=== PATIENT | female | born 1965 | race Caucasian/White ===

== ENCOUNTER 2016-06-25 05:46 | Day surgery (SDC) | payer MEDICARE, OTHER ==
--- NOTE | ~2016-06-25 | OP ---
Record Of Operation [facility] [address] [place]. [address] NAME: LALITA TINOCO : 65 STATUS : REG [facility] PAT#: [id number] AGE: 51 ADM/REG DATE : 06/25/16 MR#: [id number] REPORT SERV DATE: 06/25/16 DICTATED BY: LATISHA FERRARI IV DATE: 06/25/16 REPORT STATUS : Draft TRANSCRIBED BY: MODJovita DATE: 06/25/16 DATE OF PROCEDURE: 06/25/2016 PREOPERATIVE DIAGNOSIS: Reticulonodular infiltrate in the left lower lobe with history of lung cancer and enlarged level 7 and 11L lymph nodes. POSTPROCEDURE DIAGNOSIS: BAL with results pending of the left lower lobe with sampling of the level 7 and 11L lymph nodes demonstrating lymphoid tissue without clear malignancy. PROCEDURE: Bronchoscopy with bronchioalveolar lavage of the left lower lobe with endobronchial ultrasound and sampling of the level 7 and 11L lymph nodes. INDICATIONS: Symptoms of infection with COPD exacerbation. Unable to provide a specimen with infiltrate in the left lower lobe and enlarged level 7 and 11L lymph nodes. CONTRAINDICATIONS: None. CONSENT: The risks, benefits, and alternative evaluations were discussed with the patient. Possible complications reviewed to include air leak around the lung, bleeding, infection, low oxygen level, and even potentially . The patient agreed to procedure with the consent signed, and witnessed on the front of the chart. LABS: Platelet count was 330,000. INR was 1.1, PTT is 35.3. METHOD: The patient was taken to the bronchoscopy suite at [facility] [place] and prepared in the usual manner. Anesthesiology was consulted to provide airway management as well as sedation. This was initially provided via an LMA airway, however, because of difficulty with ventilation, the patient underwent intubation to better secure the airway. Both of these went without event. The LMA was used to initiate the procedure. A total of 18 mL of 2% lidocaine solution was used throughout the procedure to provide airway sedation. On inspection of the airway, there was slightly hyperemic mucosa with airways minimally ectatic. There was an anatomic variant of a two-segment right upper lobe with the apical segments off both the anterior and posterior segments. There were no endobronchial lesions with all airways patent out beyond the fourth generation bronchi. On the left, there was postradiation changes to the proximal airway with rotation of the airways counter clockwise. The lingula was [place]. The scope could not be advanced into the more distal left upper lobe bronchus. In the left lower lobe, there was a mucus plug in the posterior segment of the left lower lobe that was removed with suction. No endobronchial lesions were noted. A BAL was performed in the posterior and lateral segments of the left lower lobe and sent for cultures, cytology, as well as for cell count. A total of 240 mL was instilled, only 30 mL of return was obtained. It was felt that adequate sampling had been performed. The bronchoscope was then removed. At this point, the patient underwent intubation to better secure the airway. After the airway was secured and the patient was sedated, the EBUS scope was advanced down the right mainstem bronchus with visualization of a moderately enlarged level 7 lymph node. This was sampled three times for slides and three times for cell block. On each sampling, the needle was advanced 25 to 35 times. On initial review, this Record Of [address] [address] NAME: LALITA TINOCO : 65 STATUS : REG [facility] PAT#: [id number] AGE: 51 ADM/REG DATE : 06/25/16 MR#: [id number] REPORT SERV DATE: 06/25/16 DICTATED BY: LATISHA FERRARI IV DATE: 06/25/16 REPORT STATUS : Draft TRANSCRIBED BY: JEAN DATE: 06/25/16 demonstrated lymphoid tissue without evidence for malignancy. The attention was then diverted to the 11L lymph node. This was difficult to localize with 2 very small lymphoid groups noted. These were sampled a total of six times, three for cell slide and three for cell block. On each sampling, the needle was advanced 25 to 35 times. This also demonstrated lymphoid cells without malignancy. I felt that adequate sampling had been performed at this point. There was some minimal bleeding at the 11L site, though it had stopped by the time of the conclusion of procedure. Estimated blood loss was less than 5 mL. The patient will be extubated and sent to recovery. A chest x-ray will be obtained prior to discharge. The family will be made aware of the preliminary results. CLEOPATRA/JEAN Latisha Ferrari IV, M.D. / [id number] CC: Latisha Ferrari IV, M.D.
[~2016-06-25 05:46] MED LIST: ACET500CAP PO; ALBUTEROL0.083 % INH; APRES50 PO; ATV.5 PO; BREO ELLIPTA 21 EACH INH; BREO ELLIPTA INH; CARD30 PO; DSS PO; DULERA 200 MCG/13 GM INH; FLONASE NAS; INCRUSE ELLI62.5 MCG INH; LEVAQUIN750 MG PO; LOVENOX40 SC; MUCINEX600 MG PO; NICODERM C14 MG/24 H TOP; P20 PO; PERCOCET1 TA4 PO; PROAIR HFA INH; PROVENT20 INH; ZOL100 PO
[2016-06-25 06:25] LABS: HEMATOCRIT 45.7 % (36.0-48.0); HEMOGLOBIN 15.6 g/dL (12.0-16.0)
[2016-06-25 06:31] LABS: BUN (BLOOD UREA NITROGEN) 19 MG/DL (6-23); CALCIUM, SERUM 9.6 MG/DL (8.5-10.4); CHLORIDE, SERUM 103 MMOL/L (96-112); CREATININE 1.17 MG/DL (0.55-1.02); GFR AFRICAN AMERICAN 62 ML/MIN (>=60); GFR NON AFRICAN AMERICAN 54 ML/MIN (>=60); GLUCOSE, SERUM 88 MG/DL (60-99); POTASSIUM, SERUM 4.1 MMOL/L (3.5-5.3); SODIUM, SERUM 142 MMOL/L (135-148)
[2016-06-25 06:32] LABS: CO2 (CARBON DIOXIDE) 29 MMOL/L (24-34)
[2016-06-25 13:36] LABS: BD FL LYMPH (NOT ORD) 2 %; BF BASO (NOT OF) 0 %; BF LARGE MONONUCLEAR 51 %; BF TOTAL CELL CT (NOT ORD 245 /MM3; BODY FLUID EOS (NOT ORD) 0 %; BODY FLUID RBC (NOT ORD) < 1000 /MM3; BODY FLUID SEG (NOT ORD) 47 %
[2016-06-25 13:37] LABS: BD FL SOURCE (NOT ORD) BAL
== END 2016-06-25 23:59 | disposition home or self-care (01) ==
LOC: DMU 05:46
PROVIDERS: Anesthesiology; Internal Medicine Critical Care Medicine
PROC: BB4BZZZ Ultrasonography of Pleura (ICD-10-PCS; 2016-06-25)
PROC: 0B9B8ZX Drainage of Left Lower Lobe Bronchus, Via Natural or Artificial Opening Endoscopic, Diagnostic (ICD-10-PCS; principal; 2016-06-25 08:00)
PROC: 07974ZX Drainage of Thorax Lymphatic, Percutaneous Endoscopic Approach, Diagnostic (ICD-10-PCS; 2016-06-25 08:00)
DX: J18.9 Pneumonia, unspecified organism (principal); R59.0 Localized enlarged lymph nodes; Z85.118 Personal history of other malignant neoplasm of bronchus and lung; J44.9 Chronic obstructive pulmonary disease, unspecified; I10 Essential (primary) hypertension; Z88.6 Allergy status to analgesic agent; Z88.8 Allergy status to other drugs, medicaments and biological substances; Z79.51 Long term (current) use of inhaled steroids; Z79.52 Long term (current) use of systemic steroids; Z79.899 Other long term (current) drug therapy; F17.210 Nicotine dependence, cigarettes, uncomplicated; G43.909 Migraine, unspecified, not intractable, without status migrainosus; Z86.718 Personal history of other venous thrombosis and embolism; Z99.81 Dependence on supplemental oxygen; M19.90 Unspecified osteoarthritis, unspecified site; Z90.710 Acquired absence of both cervix and uterus; F41.9 Anxiety disorder, unspecified; F32.9 Major depressive disorder, single episode, unspecified; Z92.21 Personal history of antineoplastic chemotherapy
CPT/HCPCS: 71010; 80048; 85014; 85018; 87015; 87070; 87102; 87107; 87116; 87205; 88112; 88172; 88173; 88177; 88305; 88312; 89051; 93005; A9270-GY; J2250; J2370; J2405; J3010